=== PATIENT | female | born 1965 | race Caucasian/White ===

== ENCOUNTER 2017-05-07 07:55 | Day surgery (SDC) | payer BC, OTHER ==
[~2017-05-07] VITALS: Ht 160 cm; Wt 65.8 kg
[~2017-05-07 07:55] MED LIST: CARVEDILOL25 MG PO; DOXAZOSIN MESYLA1 MG PO; FLORINEF ACETA0.1 MG PO; LEVEMIR FL100 UNIT/1 SC; LEVOTHYROXINE25 MCG PO; LISINOPRIL20 MG PO; LO-DOSE ASPIRIN81 M1 PO; LOSARTAN POTAS100 MG PO; NOVOLOG PE100 UNITS/ SC; OCUVITE TABLET1 EACH PO; PERCOCET 5/31 TABLET PO; PROTONIX40 MG PO; RENA-VITE RX T1 EACH PO; RENVELA800 MG PO; VALSARTAN160 MG PO
[2017-05-07 08:36] LABS: POINT-OF-CARE METER ID UU13113696
[2017-05-07 09:59] LABS: METH RESISTANT S AUREUS PCR NEGATIVE (NEGATIVE)
[2017-05-07 10:03] LABS: PROBE CHECK PASS; SPECIMEN PROCESSING CONTROL PASS
== END 2017-05-07 10:24 | disposition home or self-care (01) ==
LOC: CATH 07:55
PROVIDERS: Surgery
DX: T82.858A Stenosis of other vascular prosthetic devices, implants and grafts, initial encounter (principal); Y83.2 Surgical operation with anastomosis, bypass or graft as the cause of abnormal reaction of the patient, or of later complication, without mention of misadventure at the time of the procedure; I12.0 Hypertensive chronic kidney disease with stage 5 chronic kidney disease or end stage renal disease; E11.22 Type 2 diabetes mellitus with diabetic chronic kidney disease; N18.6 End stage renal disease; Z99.2 Dependence on renal dialysis; E07.9 Disorder of thyroid, unspecified; Z86.14 Personal history of Methicillin resistant Staphylococcus aureus infection; Z79.4 Long term (current) use of insulin; Z79.82 Long term (current) use of aspirin; Z88.0 Allergy status to penicillin
CPT/HCPCS: 82948; 87641; C1725; C1769; C1894; J1644; J2250; J3010